=== PATIENT | male | born 1990 | race Caucasian/White ===

== ENCOUNTER 2025-09-21 16:41 | Emergency (ER) | payer BC | END 2025-09-21 17:50 | disposition home or self-care (01) | LOC: JD.ED 16:41 → JD.OB 17:56 | DX: S69.91XA Unspecified injury of right wrist, hand and finger(s), initial encounter (principal); J45.909 Unspecified asthma, uncomplicated; V86.52XA Driver of snowmobile injured in nontraffic accident, initial encounter; Y93.29 Activity, other involving ice and snow | CPT/HCPCS: 73110-26-RT; 73110-RT; 99283 ==